=== PATIENT | male | born 1995 | race Caucasian/White ===

== ENCOUNTER 2022-11-14 15:37 | Emergency (ER) | payer MEDICAID ==
[~2022-11-14] VITALS: Ht 177.8 cm; Wt 104.0 kg
[2022-11-14] MEDS ORDERED: IBUPROFEN 400MG TABLET PO ONE (21:15)
[2022-11-14] MEDS ORDERED: IBUP-2028 MT (22:25)
[2022-11-14 22:30] VITALS: BP 117/68
== END 2022-11-14 22:30 | disposition home or self-care (01) ==
LOC: ER 15:37
DX: S40.212A Abrasion of left shoulder, initial encounter (principal); M79.632 Pain in left forearm; V43.52XA Car driver injured in collision with other type car in traffic accident, initial encounter; Y93.89 Activity, other specified; Y92.488 Other paved roadways as the place of occurrence of the external cause
CPT/HCPCS: 73030; 73090; 99284